=== PATIENT | female | born 1975 | race African-American/Black ===

== ENCOUNTER 2018-01-09 12:39 | Emergency (ER) | payer OTHER ==
[~2018-01-09] VITALS: Ht 157.5 cm; Wt 86.2 kg
[2018-01-09 12:46] VITALS: BP 117/82
[2018-01-09 13:51] LABS: Urine Bacteria NONE SEEN /hpf (None Seen); Urine Blood 2+ /uL (Negative); Urine Mucus FEW (None Seen); Urine WBC 1 /hpf (0 - 5)
== END 2018-01-09 15:47 | disposition home or self-care (01) ==
LOC: ER 12:39
DX: N93.8 Other specified abnormal uterine and vaginal bleeding (principal); Z32.02 Encounter for pregnancy test, result negative
CPT/HCPCS: 76856; 81001; 81025